=== PATIENT | female | born 1995 | race Caucasian/White ===

== ENCOUNTER 2018-10-03 08:27 | Emergency (ER) | payer BC ==
[~2018-10-03] VITALS: Wt 56.8 kg
[2018-10-03 08:28] VITALS: BP 115/71; PULSE 99; RESP 18
[2018-10-03] MEDS ORDERED: D-ME473S2 PO (11:15)
[2018-10-03] MEDS ORDERED: AMOX500C2 PO (11:15)
[2018-10-03] MEDS ORDERED: ACET325T33 PO (11:16)
--- NOTE | 2018-10-22 16:36 | ERD ---
ER Documentation Chief Complaint Chief Complaint sore throat, nicki ear pain HPI Encounter from 10/03/2018 23-year-old healthy female with no reported past medical history who presents with complaint of sore throat and bilateral ear pain. Denies discharge from ear or. She otherwise denies fevers, chills, sinus pain, headache, dizziness, nausea, vomiting, diarrhea, abdominal pain, urinary symptoms. At time examination patient is completely nontoxic-appearing with reassuring exam. ROS All systems reviewed and are negative except as per history of present illness. Medications Home Meds Active Scripts Acetaminophen* (Tylenol*) 325 Mg Tablet, 1 TAB PO Q6 PRN for PAIN AND OR ELEVATED TEMP, #20 TAB Prov:JEUDINE,GETHO PA-C 10/03/18 Dextromethorphan Hb-Promethazine Hcl* (Promethazine DM* Syrup) 473 Ml Syrup, 5 ML PO Q6 PRN for COUGH for 7 Days, ML Prov:JEUDINE,GETHO PA-C 10/03/18 Amoxicillin* (Amoxicillin*) 500 Mg Cap, 500 MG PO BID for 10 Days, CAP Prov:JEUDINE,GETHO PA-C 10/03/18 Allergies Allergies: Coded Allergies: No Known Allergy (Unverified , 09/16/14) PMhx/Soc Medical and Surgical Hx: pt denies Medical Hx, pt denies Surgical Hx Hx Alcohol Use: No Hx Substance Use: No Hx Tobacco Use: No Smoking Status: Never smoker FmHx Family History: No diabetes, No coronary disease, No other Physical Exam Physical Exam I have reviewed the triage vital signs. Const: Well nourished, well developed, appears stated age Eyes: PERRL, no conjunctival injection HENT: NCAT, Neck supple without meningismus CV: RRR, Warm, well-perfused extremities RESP: CTAB, Unlabored respiratory effort GI: soft, non-tender, non-distended, no masses MSK: No gross deformities appreciated Skin: Warm, dry. No rashes Neuro: grossly non focal Psych: Appropriate mood and affect. Procedures/MDM 23-year-old female presents with complaint of sore throat and bilateral ear pain. Her exam is reassuring. No history of immunocompromise. Nontoxic appearance. Patient euvolemic with no trismus and no airway compromise. Able to tolerate PO. Unlikely [employer] ADVISOR, RPA, Ludwigs, epiglottitis, acute HIV, or EBV. Centor negative for strep. Plan to DC home with prompt outpatient PCP follow up; return precautions discussed, Amoxicillin antibiotic instructed to take in 2 to 3 days if symptoms do not improve and follow-up with your PMD DISPOSITION PLAN: We discussed follow up with the patient's primary care doctor within 24 to 48 hours. Patient counseled regarding my diagnostic impression and care plan. Prior to discharge all questions answered. Pt agrees with treatment plan and understands strict return precautions. Precautionary instructions provided including instructions to return to the ER if not improving or for any worsening or changing symptoms or concerns. Disclaimer: Inadvertent spelling and grammatical errors are likely due to EHR/dictation software use and do not reflect on the overall quality of patient care. Also, please note that the electronic time recorded on this note does not necessarily reflect the actual time of the patient encounter. Departure Diagnosis: Primary Impression: Ear pain Additional Impression: Sore throat Condition: Stable Patient Instructions: Self-Care for Sore Throats, Otitis Media, Abx Tx (Adult) Referrals: [facility] YOU HAVE RECEIVED A MEDICAL SCREENING EXAM AND THE RESULTS INDICATE THAT YOU DO NOT HAVE A CONDITION THAT REQUIRES URGENT TREATMENT IN THE EMERGENCY DEPARTMENT. FURTHER EVALUATION AND TREATMENT OF YOUR CONDITION CAN WAIT UNTIL YOU ARE SEEN IN YOUR DOCTORS OFFICE WITHIN THE NEXT 1-2 DAYS. IT IS YOUR RESPONSIBILITY TO MAKE AN APPOINTMENT FOR FOLOW-UP CARE. IF YOU HAVE A PRIMARY DOCTOR --you should call your primary doctor and schedule an appointment IF YOU DO NOT HAVE A PRIMARY DOCTOR YOU CAN CALL OUR PHYSICIAN REFERRAL HOTLINE AT IF YOU CAN NOT AFFORD TO SEE A PHYSICIAN YOU CAN CHOSE FROM THE FOLLOWING [facility] [address] [facility]. [facility] [address] [facility] [address] [facility] [address] [facility]. [facility] [address] [facility]. [facility]. [address] Additional Instructions: Call your primary care doctor TOMORROW for an appointment during the next 2-3 days.See the doctor sooner or return here if your condition worsens before your appointment time. YAYO MANZO PA-C October 22, 2018 16:36
== END 2018-10-03 11:23 | disposition home or self-care (01) ==
LOC: FTE 08:27
DX: H92.03 Otalgia, bilateral (principal)
CPT/HCPCS: 99283